=== PATIENT | female | born 2005 | race African-American/Black ===

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

== ENCOUNTER 2024-04-19 20:23 | Emergency (ER) | payer OTHER, SELFPAY ==
[2024-04-19] VITALS (7 sets, daily range): BP systolic 106–127; BP diastolic 73–86; PULSE 99–124; RESP 18–21; TEMP 36.9; O2SAT 96–100; BMI 21.9
--- NOTE | 2024-04-19 20:31 | EKG_ITS ---
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
--- NOTE | 2024-04-19 23:13 | ED_ITS ---
HPI - Chest Pain General Chief Complaint: Chest Pain Stated Complaint: chest px, dizziness Time Seen by Provider: 04/19/24 22:25 Source: patient and family Mode of arrival: Ambulatory Limitations: no limitations History of Present Illness HPI narrative: 18-year-old female presents for palpitations experienced earlier today. Patient was sitting at home when she noticed a ?buzzing? sensation in her chest as well as lightheadedness. Family became concerned that it may be something to do with the heart and brought her in for evaluation. Patient currently asymptomatic but occasionally feels palpitations. Denies known family history of heart disease. Denies personal history of heart disease or arrhythmia. Also reports that she has been struggling with upper respiratory infections recently. Related Data Previous Rx's Medication Instructions Recorded naproxen 500 mg tablet 500 mg PO DAILY #14 tabs 01/15/24 azithromycin 250 mg tablet See Rx Instructions PO .COMPLEX #6 03/03/24 tabs Allergies Allergy/AdvReac Type Severity Reaction Status Date / Time No Known Drug Allergies Allergy Verified 03/03/24 15:38 Patient History Medical History Primary dysmenorrhea Insomnia NETTIE (generalized anxiety disorder) Depression Social History Smoking Status: Never smoker Smoking Status: Never smoker Exam Initial Vital Signs Initial Vital Signs: Vital Signs Temperature 98.5 F 04/19/24 20:25 Pulse Rate 124 H 04/19/24 20:25 Respiratory Rate 18 04/19/24 20:25 Blood Pressure 116/81 04/19/24 20:25 Pulse Oximetry 100 04/19/24 20:25 Oxygen Delivery Method Room Air 04/19/24 20:25 Const: Awake, alert, no acute distress, nontoxic appearing Cardiac: regular rate, regular rhythm RESP: unlabored, clear bilaterally, no wheezing GI: Soft, nontender, nondistended, no rebound, no guarding MSK: Atraumatic, full range of motion, pulses equal Skin: Warm, Dry, intact, no rashes Neuro: AO x3, CN II-XII grossly intact, moves all extremities Course Orders Ordered: ED Orders 04/19/24 20:31 EKG-12 Lead Stat 04/19/24 22:35 CBC Auto Diff [Complete Blood Count AUTO DIFF] Stat CMP [Comprehensive Metabolic Panel] Stat Covid-19 + FLU A/B + RSV - PCR Stat 04/19/24 23:13 Chest [XR chest 1V] Stat Vital Signs Vital signs: Vital Signs - 8 hr 04/19/24 20:25 04/19/24 22:25 04/19/24 22:26 Temperature 98.5 F Pulse Rate 124 H 106 H Respiratory Rate 18 Blood Pressure 116/81 125/84 Pulse Oximetry 100 98 Oxygen Delivery Method Room Air Room Air 04/19/24 22:26 04/19/24 22:30 04/19/24 22:30 Temperature Pulse Rate 109 H 124 H Respiratory Rate 18 Blood Pressure 127/86 Pulse Oximetry 99 99 Oxygen Delivery Method Room Air Room Air 04/19/24 23:00 04/19/24 23:00 04/19/24 23:28 Temperature Pulse Rate 99 H Respiratory Rate 19 Blood Pressure 112/73 110/76 Pulse Oximetry 99 Oxygen Delivery Method Room Air 04/19/24 23:28 04/19/24 23:30 04/19/24 23:30 Temperature Pulse Rate 109 H 109 H Respiratory Rate 21 21 Blood Pressure 106/74 Pulse Oximetry 96 97 Oxygen Delivery Method Room Air Room Air MDM - Chest Pain Lab Data 04/19/24 22:35 04/19/24 22:35 Labs: Lab Results 04/19/24 Range/Units 22:35 WBC 4.0 L (4.5-11.0) X10^3/uL RBC 5.39 H (4.0-5.2) X10^6/uL Hgb 16.4 H (12.0-16.0) g/dL Hct 49.2 H (36-46) % MCV 91.2 (80-100) fL MCH 30.5 (26-34) PG MCHC 33.4 (30-36) % RDW 12.9 (11.6-14.8) % Plt Count 202 (150-400) X10^3/uL Neut % (Auto) 47.5 L (50-75) % Lymph % (Auto) 38.5 (25-40) % Alfalfa % (Auto) 13.1 (3-14) % Eos % (Auto) 0.5 L (2-4) % Baso % (Auto) 0.4 (0-2) % Neut # (Auto) 1900 (4712-0500) /uL Lymph # (Auto) 1500 (6910-6542) /uL Alfalfa # (Auto) 500 (0-900) /uL Eos # (Auto) 0 (0-450) /uL Baso # (Auto) 0 (0-100) /uL Sodium 139 (137-145) mmol/L Potassium 3.9 (3.4-5.1) mmol/L Chloride 103 (98-107) mmol/L Carbon Dioxide 25 (22-32) mmol/L BUN 4 L (7-17) mg/dL Creatinine 0.77 (0.52-1.04) mg/dL Estimated GFR > 60 (>60) mL/min BUN/Creatinine Ratio 5.2 L (6-22) Glucose 87 (70-100) mg/dL Calcium 9.6 (8.4-10.2) mg/dL Total Bilirubin 0.7 (0.2-1.3) mg/dL AST 57 H (14-36) IU/L ALT 52 H (<35) IU/L Alkaline Phosphatase 79 (38-126) U/L Total Protein 8.1 (6.3-8.2) g/dL Albumin 4.8 (3.5-5.0) g/dL Globulin 3.3 (1.7-4.1) g/dL Albumin/Globulin Ratio 1.5 (1.0-2.8) SARS-CoV-2 (PCR) Negative (Negative) Influenza A (RT-PCR) Flu a positive H (NEGATIVE) Influenza B (RT-PCR) Flu b negative (NEGATIVE) RSV (PCR) Negative (Negative) Imaging Data Chest x-ray: Radiologist's Impression: PROCEDURE: XR CHEST 1V INDICATIONS: PALPITATIONS TECHNIQUE: One view of the chest was acquired. COMPARISON: None. FINDINGS: Surgical changes and devices: None. Lungs and pleura: Lungs are clear. No pleural effusions or pneumothorax. Mediastinum: Mediastinal contours appear normal. Heart size is normal. Bones and chest wall: No suspicious bony lesions. Overlying soft tissues appear unremarkable. IMPRESSION: No acute cardiopulmonary abnormality is seen. Approved by: Prince Jarrell M.D. on 04/19/2024 at 23:46 ECG Data Interpretation: Sinus tachycardia at a rate of 121 beats per minute. Normal [place]. No ST T wave changes MDM Narrative Medical decision making narrative: Palpitation sensation at home. Currently asymptomatic. Here out of general precaution for her heart. Heart score is 0 based on age, no known risk factors, no tobacco use. She denies shortness of breath, leg swelling, OCP use. Physical exam is unremarkable. Of note, patient has chicken vitals were significant for tachycardia. When patient was allowed to rest in ED bed heart rate returned to normal limits, however when medical staff and per the room heart rate immediately increase this to greater than 100 beats per minute. Tested positive for influenza A. Patient counseled on all results. Recommended PCP follow up if she continues to experience palpitations for potential monitoring. ED return precautions discussed. Discharge Plan Departure Patient Disposition: Home Clinical Impression: Palpitations Instructions: DI for Influenza -- Adult Activity Restrictions/Additional Instructions: You tested positive for influenza a today. Your blood work, EKG, and chest x- ray today were normal. To experience these symptoms please follow up with your primary care doctor about further evaluation. Otherwise, take [id number] cough and cold medications as well as Tylenol and ibuprofen as needed for fever or discomfort. Prescriptions: No Action azithromycin 250 mg tablet See Rx Instructions PO .COMPLEX Qty: 6 0RF Rx Instructions: For 250 mg dose pack: take 500 mg today (day 1), then 250 mg for 4 days (days 2-5) PO naproxen 500 mg tablet 500 mg PO DAILY Qty: 14 0RF Rx Instructions: One tab by mouth daily for 14 days Referrals: Mir Rios DO [Primary Care Provider] - Stand Alone Forms: Patient Portal/API/Survey
[2024-04-19 23:23] LABS: Add Manual Diff / Slide Review NO; Basophils Absolute Auto 0 /uL (0-100); Basophils Percent Auto 0.4 % (0-2); Eosinophils Absolute Auto 0 /uL (0-450); Eosinophils Percent Auto 0.5 % (2-4); Hematocrit 49.2 % (36-46); Hemoglobin 16.4 g/dL (12.0-16.0); Lymphocytes Absolute Auto 1500 /uL (1100-4500); Lymphocytes Percent Auto 38.5 % (25-40); Mean Corpuscular HGB Conc 33.4 % (30-36); Mean Corpuscular Hemoglobin 30.5 PG (26-34); Mean Corpuscular Volume 91.2 fL (80-100); Monocytes Absolute Auto 500 /uL (0-900); Monocytes Percent Auto 13.1 % (3-14); Neutrophils Absolute Auto 1900 /uL (1500-7000); Neutrophils Percent Auto 47.5 % (50-75); Platelet Count 202 X10^3/uL (150-400); Red Blood Cell Count 5.39 X10^6/uL (4.0-5.2); Red Cell Distribution Width 12.9 % (11.6-14.8)
--- NOTE | 2024-04-19 23:23 | PC.NURSE ---
Imaging at bedside
[2024-04-19 23:24] LABS: Influenza A - CEPHEID Flu A POSITIVE (NEGATIVE); Influenza B - CEPHEID Flu B NEGATIVE (NEGATIVE); Respiratory Syncytial Virus Negative (Negative)
[2024-04-19 23:28] LABS: COVID-19 CEPHEID 4-PLEX PCR Negative (Negative)
[2024-04-19 23:29] LABS: Alanine Aminotransferase 52 IU/L (<35); Albumin 4.8 g/dL (3.5-5.0); Albumin Globulin Ratio 1.5 (1.0-2.8); Alkaline Phosphatase 79 U/L (38-126); Aspartate Aminotransferase 57 IU/L (14-36); BUN Creatinine Ratio 5.2 (6-22); Bilirubin Total 0.7 mg/dL (0.2-1.3); Blood Urea Nitrogen 4 mg/dL (7-17); Calcium 9.6 mg/dL (8.4-10.2); Carbon Dioxide 25 mmol/L (22-32); Chloride 103 mmol/L (98-107); Estimated Glomerular Filt Rate > 60 mL/min (>60); Globulin 3.3 g/dL (1.7-4.1); Glucose 87 mg/dL (70-100); HEMOLYSIS < 15 (0-50); Potassium 3.9 mmol/L (3.4-5.1); Sodium 139 mmol/L (137-145); Total Protein 8.1 g/dL (6.3-8.2)
== END 2024-04-19 23:51 | disposition home or self-care (01) ==
PROVIDERS: Emergency Provider Emergency Medicine; PCP Family Medicine
DX: R00.2 Palpitations (principal); R07.9 Chest pain, unspecified; R42 Dizziness and giddiness; J10.1 Influenza due to other identified influenza virus with other respiratory manifestations; R00.0 Tachycardia, unspecified
CPT/HCPCS: 0241U; 36415; 71045; 80053; 85025; 93005; 99283; 99284